=== PATIENT | female | born 1955 | race Caucasian/White ===

== ENCOUNTER 2016-06-30 18:56 | Outpatient (CLI) | payer OTHER | END 2016-06-30 18:57 | disposition home or self-care (01) | DX: M17.12 Unilateral primary osteoarthritis, left knee (principal) ==

== ENCOUNTER 2017-02-27 15:23 | Outpatient (CLI) | payer OTHER ==
--- NOTE | 2017-02-27 16:19 | XRAY Report ---
THREE VIEW RIGHT FOOT: 02/27/2017 CLINICAL INDICATION: Foot pain. FINDINGS: AP, lateral, and oblique views of the right foot demonstrate oblique fractures of the shaf ts of the 4th and 5th metatarsals, mildly displaced. Osteoarthritic changes are present, mild. No for eign body is seen in the soft tissues. IMPRESSION: MILDLY DISPLACED FRACTURES OF THE SHAFTS OF THE 4TH AND 5TH METATARSALS. JOB #: [id number] EXT JOB #:[id number]
== END 2017-02-27 15:24 | disposition home or self-care (01) ==
LOC: DI 15:23
PROVIDERS: ATTEND Physician Assistant Medical
DX: S92.341A Displaced fracture of fourth metatarsal bone, right foot, initial encounter for closed fracture (principal); S92.351A Displaced fracture of fifth metatarsal bone, right foot, initial encounter for closed fracture

== ENCOUNTER → 2017-03-09 | Outpatient (CLI) | payer OTHER ==
[2017-03-09 13:39] LABS: BASOPHILS # (AUTO) 0.1 10^3/uL (0.0-0.1); BASOPHILS % (AUTO) 1.1 %; EOSINOPHILS # (AUTO) 0.1 10^3/uL (0.0-0.7); EOSINOPHILS % (AUTO) 0.9 %; HCT - HEMATOCRIT 43.4 % (37.0-47.0); HGB - HEMOGLOBIN 14.5 g/dL (12.0-16.0); LYMPHOCYTES # (AUTO) 2.6 10^3/uL (1.5-3.5); LYMPHOCYTES % (AUTO) 35.7 %; MEAN CORPUSCULAR HEMOGLOBIN 27.8 pg (27.0-31.0); MEAN CORPUSCULAR HGB CONC 33.3 g/dL (32.0-36.0); MEAN CORPUSCULAR VOLUME 83.5 fL (81.0-99.0); MEAN PLATELET VOLUME 8.7 fL (7.9-10.8); MONOCYTES # (AUTO) 0.4 10^3/uL (0.0-1.0); NEUTROPHILS # (AUTO) 4.1 10^3/uL (1.5-6.6); NEUTROPHILS % (AUTO) 56.3 %; NUCLEATED RED BLOOD CELLS AUTO 0.1 /100WBC; RED CELL DISTRIBUTION WIDTH 14.7 % (12.0-15.0); UNCORRECTED WHITE BLOOD COUNT 7.2 x10^3/uL; WHITE BLOOD COUNT 7.2 x10^3/uL (4.8-10.8)
[2017-03-09 14:09] LABS: ALBUMIN/GLOBULIN RATIO 1.4 (1.0-2.2); BILIRUBIN,TOTAL 0.5 mg/dL (0.2-1.0); BUN - BLOOD UREA NITROGEN 24 mg/dL (6-20); CALCIUM 9.5 mg/dL (8.5-10.3); CARBON DIOXIDE - CO2 26 mmol/L (21-32); CHLORIDE 102 mmol/L (101-111); CHOL/HDL RATIO 3.6 (<4.4); CHOLESTEROL 225 mg/dL; CREATININE 0.8 mg/dL (0.4-1.0); GFR - MDRD 72 (>89); GLUCOSE 88 mg/dL (70-100); HDL CHOLESTEROL 62 mg/dL; LDL/HDL RATIO 2.4 (<4.4); POTASSIUM 3.9 mmol/L (3.5-5.0); SODIUM 138 mmol/L (135-145); TOTAL PROTEIN 7.5 g/dL (6.7-8.2); TRIGLYCERIDES 83 mg/dL; VLDL CHOLESTEROL 17 mg/dL
== END ==
LOC: LAB.R 11:09
PROVIDERS: ATTEND Physician Assistant Medical
DX: Z00.00 Encounter for general adult medical examination without abnormal findings (principal); Z11.59 Encounter for screening for other viral diseases; Z72.89 Other problems related to lifestyle
CPT/HCPCS: 80053; 80061; 84443; 85025; 86803

== ENCOUNTER 2017-03-21 07:42 | Outpatient (CLI) | payer OTHER ==
--- NOTE | 2017-03-27 12:09 | Mammography Report ---
EXAMINATION: Digital bilateral screening mammogram 03/21/2017. CLINICAL INDICATION: A 62-year-old with history of late childbearing for screening. COMPARISON: 10/2015, 04/2013. TECHNIQUE: Routine CC and MLO projections were obtained of the breasts. FINDINGS: The breasts demonstrate scattered fibroglandular densities bilaterally. Coarse and punctate, typically benign calcifications are present. No suspicious masses, clustered microcalcifications, or regions of architectural distortion are identified. IMPRESSION: Benign findings. RECOMMENDATIONS: Routine annual screening unless otherwise clinically indicated. BIRADS category 2 - Benign findings. STANDARD QUALIFYING STATEMENTS 1. This examination was reviewed with the aid of Computed Aided Detection (CAD). 2. A negative x-ray report should not delay biopsy if a dominant or clinically suspicious mass is present. More than 5% of cancers are not identified by x-ray. 3. Dense breasts may obscure an underlying neoplasm. TD: 03/22/2017 15:37 PADMINI
== END 2017-03-21 07:43 | disposition home or self-care (01) ==
LOC: DI 07:42
PROVIDERS: ATTEND Physician Assistant Medical
DX: Z12.31 Encounter for screening mammogram for malignant neoplasm of breast (principal)
CPT/HCPCS: 77067

== ENCOUNTER 2018-05-10 12:56 | Outpatient (CLI) | payer OTHER ==
[2018-05-10 13:10] LABS: BASOPHILS # (AUTO) 0.1 10^3/uL (0.0-0.1); BASOPHILS % (AUTO) 0.9 %; EOSINOPHILS # (AUTO) 0.1 10^3/uL (0.0-0.7); EOSINOPHILS % (AUTO) 1.3 %; HGB - HEMOGLOBIN 13.9 g/dL (12.0-16.0); LYMPHOCYTES # (AUTO) 2.6 10^3/uL (1.5-3.5); LYMPHOCYTES % (AUTO) 31.2 %; MEAN CORPUSCULAR HEMOGLOBIN 29.1 pg (27.0-31.0); MEAN CORPUSCULAR HGB CONC 33.8 g/dL (32.0-36.0); MEAN PLATELET VOLUME 6.8 fL (7.9-10.8); MONOCYTES # (AUTO) 0.7 10^3/uL (0.0-1.0); MONOCYTES % (AUTO) 8.4 %; NEUTROPHILS # (AUTO) 4.8 10^3/uL (1.5-6.6); NEUTROPHILS % (AUTO) 58.2 %; PLT - PLATELET COUNT 300 10^3/uL (130-450); RED BLOOD COUNT 4.79 10^6/uL (4.20-5.40); RED CELL DISTRIBUTION WIDTH 13.5 % (12.0-15.0); WHITE BLOOD COUNT 8.2 x10^3/uL (4.8-10.8)
[2018-05-10 13:29] LABS: ALBUMIN 4.3 g/dL (3.2-5.5); ALBUMIN/GLOBULIN RATIO 1.4 (1.0-2.2); ALKALINE PHOSPHATASE 49 IU/L (42-121); ALT ALANINE AMINOTRANSFERASE 33 IU/L (10-60); AST ASPARTATE AMINOTRANSFERASE 28 IU/L (10-42); BILIRUBIN,TOTAL 0.4 mg/dL (0.2-1.0); BUN - BLOOD UREA NITROGEN 17 mg/dL (6-20); CALCIUM 9.4 mg/dL (8.5-10.3); CARBON DIOXIDE - CO2 29 mmol/L (21-32); CHLORIDE 100 mmol/L (101-111); CHOLESTEROL 245 mg/dL; CREATININE 0.5 mg/dL (0.4-1.0); GFR - MDRD 124 (>89); GLUCOSE 95 mg/dL (70-100); HDL CHOLESTEROL 81 mg/dL; LDL CHOLESTEROL,CALCULATED 143 mg/dL; LDL/HDL RATIO 1.8 (<4.4); SODIUM 135 mmol/L (135-145); TOTAL PROTEIN 7.3 g/dL (6.7-8.2); VLDL CHOLESTEROL 21 mg/dL
== END 2018-05-10 12:57 | disposition home or self-care (01) ==
LOC: LAB 12:56
PROVIDERS: ATTEND Physician Assistant Medical
DX: Z00.00 Encounter for general adult medical examination without abnormal findings (principal)
CPT/HCPCS: 36415; 80053; 80061; 83721; 84443; 85025

== ENCOUNTER 2018-05-23 08:53 | Outpatient (CLI) | payer OTHER ==
--- NOTE | 2018-05-23 11:01 | Mammography Report ---
Reason: SCREENING MAMMO Procedure Date: 05/23/2018 Accession Number: [id number] / [id number] Procedure: NIMA - Screening Mammo w/Ezio CPT Code: FULL RESULT: EXAM: Screening Mammo w/Ezio DATE: 05/23/2018 9:24 AM CLINICAL HISTORY: Screening mammogram TECHNIQUE: Bilateral CC and MLO views were obtained. COMPARISON: 03/21/2017, 10/09/2015 and 04/17/2013 FINDINGS: There are scattered fibroglandular densities. No significant interval changes. No suspicious masses, clustered microcalcifications, skin thickening, or regions of architectural distortion are identified. Scattered benign-appearing calcifications are stable. IMPRESSION: Benign findings RECOMMENDATION: Routine annual screening unless otherwise clinically indicated. BIRADS CATEGORY 2: Benign findings STANDARD QUALIFYING STATEMENTS: 1. This examination was not reviewed with the aid of Computer-Aided Detection (CAD). 2. A negative or benign imaging report should not preclude biopsy if clinically suspicious findings are present. 3. Dense breasts may obscure an underlying neoplasm. 4. This examination was reviewed with the aid of 3D breast imaging (tomosynthesis). RADIA
== END 2018-05-23 08:54 | disposition home or self-care (01) ==
LOC: DI 08:53
PROVIDERS: ATTEND Physician Assistant Medical
DX: Z12.31 Encounter for screening mammogram for malignant neoplasm of breast (principal)
CPT/HCPCS: 77063; 77067

== ENCOUNTER 2020-01-02 13:40 | Outpatient (CLI) | payer MEDICARE, OTHER ==
--- NOTE | 2020-01-02 16:13 | XRAY Report ---
PROCEDURE: Knee 3 View LT INDICATIONS: LT KNEE JOINT PAIN TECHNIQUE: 3 views of the left knee(s) were acquired. COMPARISON: None. FINDINGS: Bones: No fractures or dislocations. No suspicious bony lesions. Severe degenerative arthritis. Ch ondrocalcinosis. Tricompartment osteophytes. Severe patellofemoral joint space loss. Soft tissues: No joint effusion. No suspicious soft tissue calcifications. IMPRESSION: No acute bony abnormality of the left knee. Severe degenerative arthritis. Reviewed by: Mickey Salguero MD on 01/02/2020 4:12 PM PDT Approved by: Mickey Salguero MD on 01/02/2020 4:12 PM PDT Station ID: [id number]
== END 2020-01-02 13:41 | disposition home or self-care (01) ==
LOC: DI 13:40
PROVIDERS: ATTEND Registered Nurse
DX: M17.12 Unilateral primary osteoarthritis, left knee (principal)

== ENCOUNTER 2020-01-17 10:59 | Outpatient (CLI) | payer MEDICARE, OTHER ==
--- NOTE | 2020-01-20 16:18 | Mammography Report ---
BILATERAL DIGITAL SCREENING MAMMOGRAM 3D/2D: 01/17/2020 CLINICAL: Routine screening. Comparison is made to exams dated: 05/23/2018 mammogram, 03/21/2017 mammogram, 10/09/2015 mammogram, an d 04/17/2013 mammogram - [facility]. There are scattered fibroglandular elements in both breasts. No significant masses, calcifications, or other findings are seen in either breast. There has been no significant interval change. IMPRESSION: NEGATIVE There is no mammographic evidence of malignancy. A 1 year screening mammogram is recommended. This exam was interpreted at Station ID: [id number]. NOTE: For mammograms, a report in lay terms will be sent to the patient. Approximately 15% of breast malignancies will not be visualized mammographically. In the management of a palpable breast mass, a negative mammogram must not discourage biopsy of a clinically suspicious lesion. Electronically Signed By: Stephanie araujo/dm:01/17/2020 18:19:03 ACR BI-RADS Category 1: Negative 3341F PARENCHYMAL PATTERN: (A) - The breast(s) demonstrate(s) scattered fibroglandular densities. BI-RADS CATEGORY: (1) - 1 RECOMMENDATION: (ANNUAL) - Recommend routine annual screening mammography. [id number] 1 year screening LATERALITY: (B)
== END 2020-01-17 11:00 | disposition home or self-care (01) ==
LOC: DI 10:59
PROVIDERS: ATTEND Registered Nurse
DX: Z12.31 Encounter for screening mammogram for malignant neoplasm of breast (principal)
CPT/HCPCS: 77063; 77067

== ENCOUNTER 2020-06-03 09:40 | Outpatient (CLI) | payer MEDICARE, OTHER ==
[2020-06-03 10:00] LABS: BASOPHILS # (AUTO) 0.1 10^3/uL (0.0-0.1); BASOPHILS % (AUTO) 1.2 %; EOSINOPHILS # (AUTO) 0.1 10^3/uL (0.0-0.7); EOSINOPHILS % (AUTO) 0.9 %; HGB - HEMOGLOBIN 14.4 g/dL (12.0-16.0); LYMPHOCYTES # (AUTO) 2.2 10^3/uL (1.5-3.5); LYMPHOCYTES % (AUTO) 32.9 %; MEAN CORPUSCULAR HEMOGLOBIN 28.9 pg (27.0-31.0); MEAN CORPUSCULAR HGB CONC 32.4 g/dL (32.0-36.0); MEAN CORPUSCULAR VOLUME 89.4 fL (81.0-99.0); MONOCYTES # (AUTO) 0.5 10^3/uL (0.0-1.0); MONOCYTES % (AUTO) 7.3 %; NEUTROPHILS # (AUTO) 3.9 10^3/uL (1.5-6.6); NEUTROPHILS % (AUTO) 57.6 %; PLT - PLATELET COUNT 303 10^3/uL (130-450); RED BLOOD COUNT 4.98 10^6/uL (4.20-5.40); RED CELL DISTRIBUTION WIDTH 13.1 % (12.0-15.0); WHITE BLOOD COUNT 6.8 x10^3/uL (4.8-10.8)
[2020-06-03 10:22] LABS: ALBUMIN 4.7 g/dL (3.2-5.5); ALBUMIN/GLOBULIN RATIO 1.6 (1.0-2.2); ALKALINE PHOSPHATASE 53 IU/L (42-121); ALT ALANINE AMINOTRANSFERASE 20 IU/L (10-60); AST ASPARTATE AMINOTRANSFERASE 20 IU/L (10-42); BILIRUBIN,TOTAL 0.6 mg/dL (0.2-1.0); BUN - BLOOD UREA NITROGEN 18 mg/dL (6-20); CALCIUM 9.8 mg/dL (8.5-10.3); CARBON DIOXIDE - CO2 28 mmol/L (21-32); CHLORIDE 102 mmol/L (101-111); CHOLESTEROL 274 mg/dL; CREATININE 0.6 mg/dL (0.4-1.0); GLUCOSE 100 mg/dL (70-100); HDL CHOLESTEROL 83 mg/dL; TOTAL PROTEIN 7.7 g/dL (6.7-8.2); VLDL CHOLESTEROL 12 mg/dL
[2020-06-03 10:23] LABS: CHOL/HDL RATIO 3.3 (<4.4); LDL CHOLESTEROL,CALCULATED 179 mg/dL; LDL/HDL RATIO 2.2 (<4.4)
== END 2020-06-03 09:41 | disposition home or self-care (01) ==
LOC: LAB 09:40
PROVIDERS: ATTEND Registered Nurse
DX: E78.2 Mixed hyperlipidemia (principal); Z13.228 Encounter for screening for other metabolic disorders; Z13.29 Encounter for screening for other suspected endocrine disorder; Z13.0 Encounter for screening for diseases of the blood and blood-forming organs and certain disorders involving the immune mechanism
CPT/HCPCS: 36415; 80053; 80061; 83721; 84443; 85025

== ENCOUNTER 2021-10-04 00:24 | Outpatient (CLI) | payer MEDICARE, OTHER | END 2021-10-04 00:25 | disposition critical access hospital (66) | LOC: EMS 00:24 | DX: M25.512 Pain in left shoulder (principal); W06.XXXA Fall from bed, initial encounter; Y92.003 Bedroom of unspecified non-institutional (private) residence as the place of occurrence of the external cause | CPT/HCPCS: A0425; A0429 ==

== ENCOUNTER 2021-10-04 00:32 | Emergency (ER) | payer MEDICARE, OTHER ==
[2021-10-04] MEDS ORDERED: ACETAMINOPHEN 325 MG TABLET PO STA (00:42)
[2021-10-04] MEDS ORDERED: LIDOCAINE PATCH 5% TOP STA (00:42)
[2021-10-04 00:45] VITALS: BP 142/74
[2021-10-04] MEDS ORDERED: oxyCODONE 5 MG TABLET PO STA (01:18)
[2021-10-04] MEDS ORDERED: oxyCODONE/ACET 5/325 Prepack 4 PO STA (01:18)
--- NOTE | 2021-10-04 01:24 | ED Physician Documentation ---
PD HPI UPPER EXT INJURY - Stated complaint Stated Complaint: fell out of bed, left shoulder pain - Chief complaint Chief Complaint: Ext Problem - History obtained from History obtained from: Patient - Additonal information Additional information: Patient is a 66-year-old female with no significant past medical history presenting for evaluation of left shoulder pain after rolling out of bed this evening while sleeping. Patient reports reading a book prior to falling asleep and believes she was close to the edge. The She remembered it is being on the floor. She had struck her left shoulder. She does not believe she hit her head as she does not have pain to the head.She tried to get herself up but experienced a sharp pain in the left shoulder and therefore called 911 for help.Pain is worse with movement and better at rest. It does not radiate. She denies numbness or tingling. She denies head pain, neck pain, chest pain, abdominal pain, vomiting. She reports feeling well earlier today. She denies drug or alcohol use. Review of Systems Constitutional: denies: Fever Nose: denies: Congestion Cardiac: denies: Chest pain / pressure Respiratory: denies: Dyspnea, Cough GI: denies: Abdominal Pain, Vomiting : denies: Dysuria Skin: denies: Laceration (s) Musculoskeletal: reports: Joint pain Neurologic: denies: Headache PD PAST MEDICAL HISTORY - Past Medical History Cardiovascular: None Respiratory: None Endocrine/Autoimmune: None GI: None : None HEENT: None Psych: None Musculoskeletal: None Derm: None - Past Surgical History General: Appendectomy Ortho: Other HEENT: Tonsil/Adenoidectomy - Present Medications Home Medications: Ambulatory Orders Medication Instructions Recorded Confirmed Oxycodone HCl/Acetaminophen 1 - 2 each PO Q6H PRN #14 tablet 10/04/21 [Percocet 5-325 mg Tablet] - Allergies Allergies/Adverse Reactions: Allergies Allergy/AdvReac Type Severity Reaction Status Date / Time Sulfa (Sulfonamide AdvReac Mild Rash Verified 10/04/21 00:39 Antibiotics) PD ED PE NORMAL - General General: Alert and oriented X 3, No acute distress, Well developed/nourished - HEENT HEENT: Atraumatic, PERRL, EOMI, Moist mucous membranes, Pharynx benign - Neck Neck: Supple, no meningeal sign, No bony TTP, C-Spine cleared by NEXUS criteria - Cardiac Cardiac: RRR, No murmur, Strong equal pulses - Respiratory Respiratory: No respiratory distress, Clear bilaterally - Abdomen Abdomen: Normal bowel sounds, Soft, Non tender, Non distended - Derm Derm: Other - Extremities Extremities: No deformity, No edema, Other (Distal pulses intact in bilateral upper extremities) - Neuro Neuro: Alert and oriented X 3, Normal speech, Other (EOMI, no facial asymmetry, moves all extremities Of the left upper extremity is limited due to pain at shoulder) - Psych Psych: Normal mood PD ED PE EXPANDED - Extremities Extremities: Left shoulder (Tenderness over distal clavicle, pain on range of motion of left shoulder), Motor intact, Sensory intact, Vascular intact - Visual Whole body visual: 1 - tenderness Results - Vitals Vitals: Vital Signs - 24 hr 10/04/21 00:36 Temperature 36.4 C L Heart Rate 76 Respiratory 18 Rate Blood Pressure 142/74 H O2 Saturation 95 Oxygen O2 Source Room air PD MEDICAL DECISION MAKING - ED course Complexity details: reviewed results, re-evaluated patient, d/w patient ED course: Patient with injury in region of left shoulder after falling out of bed. Her ne uro exam is normal, She does not take a blood thinner and denies any head pain therefore I do not believe she needs a head CT this evening. An x-ray of the left shoulder demonstrates a distal clavicle fracture. It appears to be a type I. A sling was applied. Patient was given pain medication and counseled on need for follow-up with primary care doctor or orthopedic surgeon. She is comfortable plan for discharge and aware of return precautions. No injuries noted elsewhere. Departure - Departure Disposition: 01 Home, Self Care Clinical Impression: Fall from bed, initial encounter Clavicle fracture, shaft Qualifiers: Encounter type: initial encounter Fracture type: closed Fracture alignment: no ndisplaced Laterality: left Qualified Code(s): S42.025A - Nondisplaced fracture of shaft of left clavicle, initial encounter for closed fracture Condition: Stable Instructions: ED Fx Clavicle Prescriptions: Oxycodone HCl/Acetaminophen [Percocet 5-325 mg Tablet] 1 - 2 each PO Q6H PRN #14 tablet PRN Reason: pain Comments: You were evaluated Evening after falling out of bed and found to have a fracture to your collarbone (Clavicle) Near the area where it meets your shoulder joint.We are going to place your arm into a sling and prescribed pain medication. Any broken bones can take 4 to 6 weeks to heal. It will likely not need surgery but I do recommend having close follow-up with your primary care doctor as you may need referral to an orthopedic surgeon. If you have any worsening pain, numbness, new areas of pain or other concerns please return to the emergency department. I have sent her prescription for narcotic pain medication to [facility] in [place]. I am prescribing a short course of narcotic pain medication for you. These are potentially dangerous and addictive medications that should be used carefully. These medications may constipate you. Take an ntoj-tbg-quruftq stool softener (docusate) twice daily with plenty of water while taking these medications. If you go 24 hours without a bowel movement, take lzdt-niv-piqhsad miralax, per package instructions. Do not drink or drive while taking these medications. If you received narcotic or sedating medications while in the emergency department, do not drive for 24 hours. Store this medication in a safe, secure place and out of reach of children. It is a violation of federal law to give or sell this medication to another person or to use in a manner other than prescribed. The ED will not refill narcotic prescriptions, including prescriptions lost or stolen. To dispose of unwanted medications: 1. [facility] at [address] in [place] has a medication drop box. They accept prescription medications (in pill form) Monday through Monday 9:00 a.m. to 5:00 p.m. 2. The [facility] [employer] accepts prescription medications (in pill form only) for disposal year round. Call for more inf ormation. 3. Contact the [facility] for the next [facility] sponsored prescription drug collection event. , [phone], or [phone]; Note that many narcotic pain relievers also contain Tylenol/acetaminophen. Please ensure that your total dose of acetaminophen from all sources does not exceed 3 g (3000 mg) per day. Discharge Date/Time: 10/04/21 01:35
--- NOTE | 2021-10-04 01:46 | XRAY Report ---
PROCEDURE: Shoulder 3 View LT INDICATIONS: fall/pain TECHNIQUE: 3 views of the shoulder were acquired. COMPARISON: None. FINDINGS: Bones: There is a mildly comminuted fracture of the distal left clavicle. The acromioclavicular joint appears grossly congruent. No glenohumeral joint fracture or dislocation. No suspicious bony lesions . Visualized ribs appear intact. Soft tissues: No suspicious soft tissue calcifications. IMPRESSION: 1. Mildly comminuted fracture of the distal left clavicle without dislocation of the acromioclavicula r joint Reviewed by: Doug Sharma MD on 10/04/2021 1:45 AM PDT Approved by: Doug Sharma MD on 10/04/2021 1:45 AM PDT Station ID: [id number]
== END 2021-10-04 01:35 | disposition home or self-care (01) ==
LOC: ED 00:32
DX: S42.025A Nondisplaced fracture of shaft of left clavicle, initial encounter for closed fracture (principal); W06.XXXA Fall from bed, initial encounter
CPT/HCPCS: 73030; 99282; 99283; A9270

== ENCOUNTER 2023-09-10 08:51 | Emergency (ER) | payer MEDICARE, OTHER ==
--- NOTE | 2023-09-10 09:52 | ED Physician Documentation ---
PD HPI NVD - Stated complaint Stated Complaint: NAUSEA/DIZZY - Chief complaint Chief Complaint: Abd Pain - History obtained from History obtained from: Patient - History of Present Illness Timing - onset: Yesterday Timing - details: Gradual onset, Still present (she had onset of some nausea and feelng of mild vertigo with movement. Had eaten some salsa that had white film on top that she spooned off then ate the salsa. Did not notice abnormal smell nor acerbic taste.) Contributing factors: Bad food (she is concerned about botulism from the salsa. Has had some mild sinus congestion from allergies recently as well.). No: Sick contact Review of Systems Eyes: reports: Other (no diplopia). denies: Loss of vision, Decreased vision Nose: reports: Rhinorrhea / runny nose, Congestion (due to allergies recently), Other (does not feel trouble swallowing nor breathing.) PD PAST MEDICAL HISTORY - Past Medical History Past Medical History: No Cardiovascular: None Respiratory: None Endocrine/Autoimmune: None GI: None : None HEENT: None Psych: None Musculoskeletal: None Derm: None - Past Surgical History Past Surgical History: Yes General: Appendectomy Ortho: Other HEENT: Tonsil/Adenoidectomy - Present Medications Home Medications: Ambulatory Orders Medication Instructions Recorded Confirmed No Known Home Medications 09/10/23 09/10/23 - Allergies Allergies/Adverse Reactions: Allergies Allergy/AdvReac Type Severity Reaction Status Date / Time Sulfa (Sulfonamide AdvReac Mild Rash Verified 09/10/23 09:15 Antibiotics) - Social History Does the pt smoke?: No Smoking Status: Never smoker Does the pt drink ETOH?: No Does the pt have substance abuse?: No - Immunizations Immunizations are current?: Yes PD ED PE NORMAL - Vitals Vital signs reviewed: Yes - General General: Alert and oriented X 3, No acute distress, Well developed/nourished - HEENT HEENT: PERRL, EOMI (no diplopia), Pharynx benign, Other (no ptosis) - Neck Neck: Supple, no meningeal sign, No adenopathy - Derm Derm: Normal color, Warm and dry Results - Vitals Vitals: Vital Signs - 24 hr 09/10/23 11:26 Heart Rate 74 Respiratory 18 Rate Blood Pressure 132/82 H O2 Saturation 98 Oxygen O2 Source Room air PD Medical Decision Making - ED course Complexity details: considered differential (patient states she had some older salsa from fridge that had a layer of white mold appearance on the top that she spooned off and ate.), d/w patient Reviewed Lab Results: She googled and is concerned about botulism. ED course: Certainly I have not seen cases of botulism so not a clinical experience to draw from. The referenced materials are the initial symptoms have to do with developing paralysis of cranial nerves in particular with eye and faical movement being the most sensitive to notice. Nausea and feeling of mild dizziness are not common/listed. The patient does not have any feeling of facial weakness, diplopia, lid lag, trouble swallowing nor breathing. I did reference [facility] and [employer] to referesh my memory and reinforced the symptoms I was thinking. Her feeling nausea and lightheaded/mild vertigo could be other toxins (food poising staph, etc). So to see if develop other symtpoms. Return precautions of what developing symptoms to look for. Departure - Departure Disposition: 01 Home, Self Care Clinical Impression: Dizziness Condition: Stable Record reviewed to determine appropriate education?: Yes Instructions: ED Vertigo Unspecified Follow-Up: Mattie Angelo ARNP [Primary Care Provider] - Comments: Meclizine 12.5 to 25 mg every 6-8 hours if needed for feeling of dizziness. The symptoms you are describing do not suggest botulinum at this point. I printed out the table reference from up to date reference about the more common symptoms to trigger concern for botulism. See if you develop any other symptoms over the next couple of days. This could also be an early symptoms of even a viral head cold or such. You can get just some dizziness related to inflammation through the inner ear and treat that with the meclizine and commonly that will clear over a couple of days. Follow-up with your primary care or return to the ER if needed. Forms: PCP List Discharge Date/Time: 09/10/23 11:26
[2023-09-10] MEDS: MECLIZINE 12.5 MG TABLET PO STA (10:29)
[2023-09-10 11:36] VITALS: BP 132/82; O2SAT 98
== END 2023-09-10 11:26 | disposition home or self-care (01) ==
LOC: ED 08:51
DX: R42 Dizziness and giddiness (principal); R11.0 Nausea; R10.9 Unspecified abdominal pain
CPT/HCPCS: 99283; A9270

== ENCOUNTER 2023-09-14 07:51 | Day surgery (SDC) | payer MEDICARE, OTHER ==
[~2023-09-14 07:51] MED LIST: CYCLOPENTOLATE 1% OPHTH DROPS 2 ML ONE; KETOROLAC 0.45% OPHTH DROPS ONE; PHENYLEPHRINE 2.5% OPHTH 2 ML DROPS ONE; PROPARACAINE 0.5% OPHTH DROPS 15 ML ONE
[2023-09-14] MEDS: LACTATED RINGERS 1,000 ML IV ONE ×2 (07:54→10:33)
[2023-09-14] MEDS ORDERED: BRIMONIDINE 0.2% OPHTH DROPS 5 ML ONE (09:53)
[2023-09-14] MEDS ORDERED: EPINEPHrine 1 MG/ML AMP ONE (09:53)
[2023-09-14] MEDS ORDERED: TRIAMCIN/MOXIFLOX OPHTHALMIC 0.6 ML VIAL IO ONE (09:53)
[2023-09-14] MEDS ORDERED: TIMOLOL 0.5% OPHTH DROPS ONE (09:53)
[2023-09-14] MEDS ORDERED: BSS/LIDOCAINE/EPINEPHRINE 1 ML VIAL ONE (09:54)
--- NOTE | 2023-09-14 10:00 | ANESTHESIA ---
Pre-Anesthesia VS, & Labs - Diagnosis LEFT EYE CATARACT - Procedure PE IOL OS Vital Signs: Temp Pulse Resp BP Pulse Ox O2 Flow Rate 36.2 C L 67 16 116/46 L 96 09/14/23 07:58 09/14/23 07:58 09/14/23 07:58 09/14/23 07:58 09/14/23 07:58 Height: 5 ft 6 in Weight (kg): 77 kg Body Mass Index: 27.3 BMI Classification: Overweight - NPO >8 hours - Is Patient ?: No Home Medications and Allergies No Known Home Medications 09/10/23 Allergies/Adverse Reactions: Allergies Allergy/AdvReac Type Severity Reaction Status Date / Time Sulfa (Sulfonamide AdvReac Mild Rash Verified 09/13/23 14:40 Antibiotics) Anes History & Medical History - Anesthetic History Anesthesia Complications: reports: No previous complications Family history of Anesthesia Complications: Denies - Medical History Cardiovascular: reports: None Pulmonary: reports: None Gastrointestinal: reports: None Urinary: reports: None Musculoskeletal: reports: None Endocrine/Autoimmune: reports: None Skin: reports: None Smoking Status: Never smoker Psychosocial: reports: No issues indicated - Surgical History General: reports: Appendectomy Eyes Ears Nose Throat (EENT): reports: Tonsil/Adenoidectomy Orthopedic: reports: Other Results - EKG Results EKG Comparison: Reviewed EKG Exam General: Alert, Oriented x3 Neck Mobility: Normal Mallampati classification: II Thyromental Distance: 4-6 cm Plan Anesthesia Type: MAC Consent for Procedure(s) Verified and Reviewed: Yes Code Status: Attempt Resuscitation ASA classification: 1-Healthy patient Is this case an emergency?: No
[2023-09-14] MEDS ORDERED: MIDAZOLAM 2 MG/2 ML VIAL ONE (10:05)
[2023-09-14] MEDS: BRIMONIDINE 0.2% OPHTH DROPS 5 ML OPTH ONE (10:22)
[2023-09-14] MEDS: EPINEPHrine 1 MG/ML AMP IR ONE (10:22)
[2023-09-14] MEDS: TIMOLOL 0.5% OPHTH DROPS OPTH ONE (10:22)
[2023-09-14] MEDS: TRIAMCIN/MOXIFLOX OPHTHALMIC 0.6 ML VIAL IO ONE (10:23)
[2023-09-14] MEDS: PROPARACAINE 0.5% OPHTH DROPS 15 ML LEFTEYE ONE (10:23)
[2023-09-14] MEDS: VANCOMYCIN OPHTH (TOPICAL) 10 MG/ML SYRINGE TOP ONE (10:23)
[2023-09-14] MEDS: BSS/LIDOCAINE/EPINEPHRINE 1 ML SYRINGE IO ONE (10:23)
--- NOTE | 2023-09-14 10:44 | OPERATIVE REPORT ---
Operative Report - Other Other Information/Narrative: Date of Surgery: 09/14/23 Preop Dx: Visually significant cataract left eye. This was the first cataract surgery. Postop Dx: Same Procedure: Phacoemulsification with posterior chamber intraocular lens implant left eye Surgeon: Dr. Carlos Sierra Anesthesia: Monitored anesthesia care Complications: None Operative Indications: This is a 68-year-old F with progressive vision loss in the left eye due to 3+ nuclear sclerotic, trace cortical, and vacuolar cataract. Best corrected visual acuity was 20/50 with glare to 20/150 vision in the left eye. Indications for surgery were: - Overall decrease in vision - Difficulty seeing street signs - Difficulty driving in low light or at night - Difficulty driving at night because of headlights from other vehicles - Difficulty with glare or bright lights in any situation The patient was consented at length concerning the risks and benefits of cataract surgery after which the patient expressed a desire [facility]. Operative Procedure: The patient was taken into OR#3 and placed under monitored anesthesia care. A surgical time-out was conducted confirming correct patient, correct procedure, and correct surgical site. The patient was given topical anesthesia and then prepped and draped in the usual sterile fashion. The eye was entered at the 6 and 3 oclock positions. Intracameral Shugarcaine was injected into the anterior chamber followed by a dispersive viscoelastic. A continuous-tear curvilinear capsulorhexis was performed. The nucleus was hydrodissected and phacoemulsified. The cortex was evacuated using automated infusion and aspiration. A cohesive viscoelastic was injected into the capsular bag and a 19.5 diopter intraocular lens was inserted into the bag. Infusion and aspiration were used to evacuate the viscoelastic materials from the eye. The wounds were hydrated and the eye inflated to physiologic pressure using balanced salt solution. Approximately 0.25ml of a mixture of triamcinolone and moxifloxacin was injected trans-sclerally into the vitreous in the inferotemporal quadrant using a 30 gauge cannula. An additional 0.25ml of a mixture of triamcinolone and moxifloxacin was injected subconjunctivally in the superior quadrant for infection and inflammation prophylaxis. Wound integrity was checked with Weck-Ana Lilia sponges. The patient was taken from the operating room in good condition and given post-op instructions.
[2023-09-14 10:48] VITALS: O2SAT 97
[2023-09-14 11:08] VITALS: BP 108/57
--- NOTE | 2023-09-14 11:30 | OPERATIVE REPORT ---
Operative Report - Other Other Information/Narrative: Date of Surgery: 09/14/23 Preop Dx: Visually significant cataract left eye. Cataract surgery was performed in the right eye on [id number]. Postop Dx: Same Procedure: Phacoemulsification with posterior chamber toric intraocular lens implant left eye Surgeon: Dr. Carlos Sierra Anesthesia: Monitored anesthesia care Complications: None Operative Indications: This is a 68-year-old F with progressive vision loss in the left eye due to 3+ nuclear sclerotic, 2+ cortical, 3-4+ posterior subcapsular, and 2+ anterior subcapsular cataract. Best corrected visual acuity was 20/250 with glare to hand motion vision in the left eye. Indications for surgery were: - Overall decrease in vision - Difficulty seeing words on a computer screen - Difficulty reading - Difficulty seeing words, closed captions, or game scores on TV - Difficulty seeing street signs - Difficulty driving in low light or at night - Decreased acuity with firearms The patient was consented at length concerning the risks and benefits of cataract surgery after which the patient expressed a desire to proceed with surgery. Operative Procedure: The patients cornea was marked in the pre-surgical area to indicate the axis for the toric intraocular lens. The patient was taken into OR#3 and placed under monitored anesthesia care. A surgical time-out was conducted confirming correct patient, correct procedure, and correct surgical site. The patient was given topical anesthesia and then prepped and draped in the usual sterile fashion. The eye was entered at the 6 and 3 oclock positions. For some reason the iris immediately prolapsed out the phaco wound and continued to be a problem throughout the case. Intracameral Shugarcaine was injected into the anterior chamber followed by a dispersive viscoelastic. A continuous-tear curvilinear capsulorhexis was performed. The nucleus was hydrodissected and phacoemulsified. The cortex was evacuated using automated infusion and aspiration. A cohesive viscoelastic was injected into the capsular bag and a 21.0 diopter toric intraocular lens was inserted into the bag and rotated to axis 123. Infusion and aspiration were used to evacuate the viscoelastic materials from the eye and the IOL was verified to remain on axis. The wounds were hydrated and the eye inflated to physiologic pressure using balanced salt solution. Approximately 0.25ml of a mixture of triamcinolone and moxifloxacin was injected trans-sclerally into the vitreous in the inferotemporal quadrant using a 30 gauge cannula. An additional 0.25ml of a mixture of triamcinolone and moxifloxacin was injected subconjunctivally in the superior quadrant for infection and inflammation prophylaxis. Wound integrity was checked with Weck-Ana Lilia sponges and the IOL axis was once again verified to be on the correct axis. The patient was taken from the operating room in good condition and given post-op instructions.
--- NOTE | 2023-09-14 16:11 | ANESTHESIA POST OP EVALUATION ---
Anesthesia Post Eval - Post Anesthesia Eval Vitals: Last Vital Signs Temp 36 C L 09/14/23 10:33 Pulse 65 09/14/23 10:50 Resp 16 09/14/23 10:50 BP 108/57 L 09/14/23 10:50 Pulse Ox 97 09/14/23 10:50 O2 Flow Rate CV Function Including HR & BP: Stable Pain Control: Satisfactory Nausea & Vomiting: Negative Mental Status: Baseline Respiratory Status: Airway Patent Hydration Status: Satisfactory Anesthesia Complications: None
== END 2023-09-14 07:52 | disposition home or self-care (01) ==
LOC: SDS 07:51
PROVIDERS: ATTEND Ophthalmology
DX: H25.12 Age-related nuclear cataract, left eye (principal)
CPT/HCPCS: 66984; A9270; J3490; J7120

== ENCOUNTER 2023-12-15 07:49 | Outpatient (CLI) | payer MEDICARE, OTHER ==
--- NOTE | 2023-12-18 08:10 | Mammography Report ---
BILATERAL DIGITAL SCREENING MAMMOGRAM 3D/2D: 12/15/2023 CLINICAL: Routine screening. Comparison is made to exams dated: 01/17/2020 mammogram, 05/23/2018 mammogram, 03/21/2017 mammogram, a nd 10/09/2015 mammogram - [facility]. There are scattered areas of fibroglandular density in both breasts (category b / 25%-50% glandular t issue). No significant masses, calcifications, or other findings are seen in either breast. There has been no significant interval change. IMPRESSION: NEGATIVE There is no mammographic evidence of malignancy. A 1 year screening mammogram is recommended. Based on the Tyrer Cuzick model (a risk assessment model) the patient's lifetime risk is 7.2% and her 10 year risk is 4.3%. According to the ACR, ACS, and NCCN guidelines, an annual breast MRI exam olive g with mammogram is recommended if the patient's lifetime risk is 20% or greater. This exam was interpreted at Station ID: [id number]. NOTE: For mammograms, a report in lay terms will be sent to the patient. Approximately 15% of breast malignancies will not be visualized mammographically. In the management of a palpable breast mass, a negative mammogram must not discourage biopsy of a clinically suspicious lesion. Electronically Signed By: Baldemar [email or web address]:12/15/2023 14:07:09 letter sent: No_Letter ACR BI-RADS Category 1: Negative 3341F PARENCHYMAL PATTERN: (A) - The breast(s) demonstrate(s) scattered fibroglandular densities. BI-RADS CATEGORY: (1) - 1 RECOMMENDATION: (ANNUAL) - Recommend routine annual screening mammography. [id number] 1 year screening LATERALITY: (B)
== END 2023-12-15 07:50 | disposition home or self-care (01) ==
LOC: DI 07:49
PROVIDERS: ATTEND Registered Nurse
DX: Z12.31 Encounter for screening mammogram for malignant neoplasm of breast (principal); R92.323 Mammographic fibroglandular density, bilateral breasts